=== PATIENT | female | born 1925 | race Caucasian/White ===

== ENCOUNTER 2016-06-22 07:38 | Observation (INO) | payer OTHER, BC ==
[~2016-06-22] VITALS: Ht 154.9 cm; Wt 68.9 kg
[~2016-06-22 07:38] MED LIST: ATARAX,VISTARIL25 MG PO; BYSTOLIC5 MG PO; CIPRO250 MG PO; CRESTOR5 MG PO; LIDOCAINE700 MG TD; LISINOPRIL2.5 MG PO; LISINOPRIL20 MG PO; LOPRESSOR25 MG PO; LOPRESSOR50 MG PO; PREDNISONE10 M1 PO; SENNA-TIME S T1 EACH PO; SODIUM CHLORIDE1 G1 PO; VESICARE10 MG PO
[2016-06-22 08:29] LABS: HEMATOCRIT 32.6 % (36.0-46.0); MCH 32.7 PG (29.0-34.0); MCHC 33.4 G/DL (30.0-36.0); MCV 97.9 FL (83-99); MEAN PLAT.VOLUME 11.3 uM^3 (9.5-12.4); PLATELET COUNT 175 K/uL (156-360); RBC DIS.WIDTH-CV 13.6 % (11.8-14.6); RBC DIS.WIDTH-SD 46.7 % (39-53); RED BLOOD COUNT 3.33 M/uL (3.80-5.20); WHITE BLOOD COUNT 8.7 K/uL (4.1-10.2)
[2016-06-22 08:42] LABS: CHLORIDE 105 mEq/L (99-109); POTASSIUM 4.3 mEq/L (3.7-5.4); SODIUM 138 mEq/L (136-147)
[2016-06-22 08:44] LABS: GLUCOSE 101 mg/dL (70-99)
[2016-06-22 08:46] LABS: ANION GAP 12 MEQ/L (2-14)
[2016-06-22 08:48] LABS: GFR ESTIMATE (CALCULATED) 41 mL/min/
[2016-06-22 08:49] LABS: UREA NITROGEN (BUN) 25 mg/dL (9-23)
[2016-06-22 08:56] LABS: TROP-I INTERPRETATION NEGATIVE; TROPONIN-I 0.06 ng/mL (0.0-0.30)
[2016-06-22 09:17] LABS: ADD MIUA? YES; BILIRUBIN NEGATIVE; BLOOD SMALL; COLOR YELLOW ((YELLOW)); GLUCOSE (STRIP) NEGATIVE; KETONES NEGATIVE; LEUKOCYTES LARGE; NITRITE POSITIVE; PROTEIN (STRIP) 30; UROBILINOGEN 0.2 MG/DL (0.2-1.0)
[2016-06-22 09:38] LABS: BACTERIA 3+ /HPF; EPITHELIAL CELLS 1+ /HPF; MUCUS NONE SEEN /LPF; RED BLOOD CELLS 0-5 /HPF (0-5); UCUL ADDED? YES; WHITE BLOOD CELLS TNTC /HPF (0-5)
[2016-06-22 10:59] LABS: TROP-I INTERPRETATION NEGATIVE; TROPONIN-I 0.06 ng/mL (0.0-0.30)
[2016-06-22] MEDS ORDERED: CLEOCIN300 MG PO (11:08)
[2016-06-22] MEDS ORDERED: FOLIC ACID1 MG PO (11:09)
[2016-06-22] MEDS ORDERED: METHOTREXATE2.5 MG PO (11:12)
[2016-06-22] MEDS ORDERED: PREDNISOLONE AC15 ML BOTH EYES (11:12)
[2016-06-22] MEDS ORDERED: MYRBETRIQ50 MG PO (11:13)
[2016-06-22] MEDS ORDERED: AMLODIPINE BES2.5 MG PO (11:14)
[2016-06-22] MEDS ORDERED: KENALOG,ARISTOC80 G1 TP (11:15)
[2016-06-22] MEDS ORDERED: POLYMYXIN B-TMP10 ML LEFT EYE (11:18)
[2016-06-22] MEDS ORDERED: EYLEA IV (11:22)
[2016-06-22] MEDS ORDERED: SUPER CALCIUM600 MG PO (11:24)
[2016-06-22] MEDS ORDERED: VITAMIN D31000 UNIT PO (11:25)
[2016-06-22 15:36] VITALS: BP 136/75
[2016-06-22 15:37] VITALS: BP 145/69; BP 169/76
[2016-06-22 17:32] LABS: TROP-I INTERPRETATION NEGATIVE
[2016-06-22 20:00] VITALS: BP 148/67
[2016-06-22 23:45] LABS: TROP-I INTERPRETATION NEGATIVE
[2016-06-23 00:31] VITALS: BP 172/81
[2016-06-23 05:51] VITALS: BP 158/74
[2016-06-23 08:00] VITALS: BP 167/70
[2016-06-23 11:51] VITALS: BP 139/64
[2016-06-23 20:00] VITALS: BP 145/70
[2016-06-24 00:05] VITALS: BP 148/64
[2016-06-24 08:00] VITALS: BP 151/72
== END 2016-06-24 12:03 ==
LOC: EME → EDBD 07:38 → EME 07:38 → 5WEST 10:38 → EDOF 10:38 → 5WEST 15:09
PROVIDERS: Emergency Medicine; Internal Medicine; Physician Assistant Medical
DX: R55 Syncope and collapse (principal); I65.21 Occlusion and stenosis of right carotid artery; N39.0 Urinary tract infection, site not specified; M79.604 Pain in right leg; I11.9 Hypertensive heart disease without heart failure; E78.5 Hyperlipidemia, unspecified; I34.8 Other nonrheumatic mitral valve disorders; I34.0 Nonrheumatic mitral (valve) insufficiency; I36.1 Nonrheumatic tricuspid (valve) insufficiency; I27.2 Other secondary pulmonary hypertension; I35.1 Nonrheumatic aortic (valve) insufficiency; R26.2 Difficulty in walking, not elsewhere classified; D64.9 Anemia, unspecified; Z82.49 Family history of ischemic heart disease and other diseases of the circulatory system; Z88.2 Allergy status to sulfonamides; Z88.8 Allergy status to other drugs, medicaments and biological substances
CPT/HCPCS: 70450; 71010; 73560; 73590; 80048; 81003; 84484; 85027; 87086; 93005; 93306; 93880; 93971; 99281; 99285; G0378; G8978 GP CJ; G8980 GP CI; J0696; J1644; J7030; J7050; J8610

== ENCOUNTER 2016-06-24 11:10 | Inpatient (IN) | payer OTHER, BC ==
[~2016-06-24] VITALS: Ht 154.9 cm; Wt 71.1 kg
[~2016-06-24 11:10] MED LIST changes: +AMLODIPINE BES2.5 MG PO; +CLEOCIN300 MG PO; +EYLEA IV; +FOLIC ACID1 MG PO; +KENALOG,ARISTOC80 G1 TP; +METHOTREXATE2.5 MG PO; +MYRBETRIQ50 MG PO; +POLYMYXIN B-TMP10 ML LEFT EYE; +PREDNISOLONE AC15 ML BOTH EYES; +SUPER CALCIUM600 MG PO; +VITAMIN D31000 UNIT PO
[2016-06-24 12:15] VITALS: BP 145/63
[2016-06-24 15:00] VITALS: BP 165/72
[2016-06-25 00:17] VITALS: BP 134/61
[2016-06-25 04:56] LABS: HEMATOCRIT 29.5 % (36.0-46.0); MCH 32.6 PG (29.0-34.0); MCHC 33.2 G/DL (30.0-36.0); MEAN PLAT.VOLUME 11.2 uM^3 (9.5-12.4); PLATELET COUNT 157 K/uL (156-360); RBC DIS.WIDTH-CV 13.7 % (11.8-14.6); RBC DIS.WIDTH-SD 46.1 % (39-53); RED BLOOD COUNT 3.01 M/uL (3.80-5.20); WHITE BLOOD COUNT 11.1 K/uL (4.1-10.2)
[2016-06-25 05:05] LABS: CHLORIDE 104 mEq/L (99-109); POTASSIUM 4.3 mEq/L (3.7-5.4)
[2016-06-25 05:07] LABS: GLUCOSE 131 mg/dL (70-99)
[2016-06-25 05:09] LABS: ANION GAP 7 MEQ/L (2-14); TOTAL BILIRUBIN 0.4 mg/dL (0.0-1.0)
[2016-06-25 05:11] LABS: ALKALINE PHOSPHATASE 120 IU/L (3-129); GFR ESTIMATE (CALCULATED) 38 mL/min/
[2016-06-25 05:12] LABS: UREA NITROGEN (BUN) 27 mg/dL (9-23)
[2016-06-25 05:14] LABS: SODIUM 131 mEq/L (136-147)
[2016-06-25 05:41] VITALS: BP 125/78
[2016-06-25 16:45] VITALS: BP 160/67
[2016-06-26 05:33] VITALS: BP 141/80
[2016-06-26 16:45] VITALS: BP 132/74
[2016-06-27 05:33] VITALS: BP 141/66
[2016-06-27 15:28] VITALS: BP 135/80
[2016-06-28 04:46] LABS: BASE EXCESS -3.8 mEq/L (-3 to +3); BICARBONATE 23.7 mEq/L (22-26); CARBOXY HGB 1.9 % (0-5); COMMENTS - BLOOD GASES C+; METHEMOGLOBIN 1.7 % (0-1.5); O2 FLOW 8 L/MIN; PCO2 54 mm Hg (35-45); PO2 71 mm Hg (80-100); SITE RR; pH 7.25 (7.35-7.45)
[2016-06-28 04:47] LABS: DEVICE NEBULIZER; TOTAL RESP RATE 32 resp/min
[2016-06-28 05:14] LABS: HEMATOCRIT 31.8 % (36.0-46.0); MCH 33.2 PG (29.0-34.0); MCHC 33.3 G/DL (30.0-36.0); MCV 99.7 FL (83-99); RBC DIS.WIDTH-CV 13.8 % (11.8-14.6); RED BLOOD COUNT 3.19 M/uL (3.80-5.20); WHITE BLOOD COUNT 12.3 K/uL (4.1-10.2)
[2016-06-28 05:15] VITALS: BP 157/78
[2016-06-28 05:23] LABS: TROP-I INTERPRETATION NEGATIVE; TROPONIN-I 0.06 ng/mL (0.0-0.30)
[2016-06-28 05:30] VITALS: BP 118/53
[2016-06-28 05:50] LABS: PROTHROMBIN TIME 9.8 (9.2-11.2)
[2016-06-28 06:00] VITALS: BP 97/46
[2016-06-28 06:29] LABS: MEAN PLAT.VOLUME 11.5 uM^3 (9.5-12.4); PLATELET COUNT 279 K/uL (156-360)
[2016-06-28] MEDS ORDERED: TRAMADOL HCL50 MG PO (07:40)
[2016-06-28] MEDS ORDERED: NEURONTIN100 MG PO (07:42)
== END 2016-06-28 04:55 | DRG 555 ==
LOC: 3WEST 11:10
PROVIDERS: Internal Medicine; Physical Medicine & Rehabilitation Pain Medicine; Psychiatry & Neurology Neurology
PROC: F07M0ZZ Range of Motion and Joint Mobility Treatment of Musculoskeletal System - Whole Body (ICD-10-PCS; principal; 2016-06-24)
DX: R26.2 Difficulty in walking, not elsewhere classified (principal); M62.81 Muscle weakness (generalized); J96.01 Acute respiratory failure with hypoxia; N39.0 Urinary tract infection, site not specified; B58.00 Toxoplasma oculopathy, unspecified; J98.01 Acute bronchospasm; Z91.81 History of falling; R06.00 Dyspnea, unspecified; R06.2 Wheezing; I65.21 Occlusion and stenosis of right carotid artery; I70.203 Unspecified atherosclerosis of native arteries of extremities, bilateral legs; I11.9 Hypertensive heart disease without heart failure; I49.1 Atrial premature depolarization; I49.3 Ventricular premature depolarization; I45.10 Unspecified right bundle-branch block; E78.5 Hyperlipidemia, unspecified; D64.9 Anemia, unspecified; I25.10 Atherosclerotic heart disease of native coronary artery without angina pectoris; M19.90 Unspecified osteoarthritis, unspecified site; R33.9 Retention of urine, unspecified; N31.8 Other neuromuscular dysfunction of bladder; M85.80 Other specified disorders of bone density and structure, unspecified site; H91.93 Unspecified hearing loss, bilateral
CPT/HCPCS: 36600; 71010; 71101; 73630; 74176; 80053; 82306; 82607; 82746; 82803; 84443; 84484; 85027; 85610; 85730; 94640; 94640 76; 97110 GO; 97530 GP; 99202; J1644

== ENCOUNTER 2016-06-28 04:59 | Inpatient (IN) | payer OTHER, BC ==
[2016-06-28] VITALS (14 sets, daily range): BP systolic 107–157; BP diastolic 46–84
[~2016-06-28] VITALS: Ht 154.9 cm; Wt 70.1 kg
[2016-06-28 07:15] LABS: D-DIMER ELISA 3.52 mg/L FEU (< 0.57)
[2016-06-28 07:18] LABS: METH RESISTANT S AUREUS PCR NEGATIVE (NEGATIVE); PROBE CHECK PASS; SPECIMEN PROCESSING CONTROL PASS
[2016-06-28] MEDS ORDERED: TRAMADOL HCL50 MG PO (07:40)
[2016-06-28] MEDS ORDERED: NEURONTIN100 MG PO (07:42)
[2016-06-28 10:45] LABS: ANION GAP 11 MEQ/L (2-14); CHLORIDE 96 MEQ/L (99-109); MAGNESIUM 2.2 mg/dl (1.3-2.7); SAMPLE HEMOLYSIS CHECK 0; SAMPLE ICTERIC CHECK 0; SAMPLE LIPEMIA CHECK 0; SODIUM 129 MEQ/L (136-147)
[2016-06-28 10:50] LABS: ADD MIUA? YES; BILIRUBIN NEGATIVE; BLOOD NEGATIVE; COLOR STRAW ((YELLOW)); GLUCOSE (STRIP) NEGATIVE; KETONES NEGATIVE; LEUKOCYTES SMALL; NITRITE NEGATIVE; PROTEIN (STRIP) NEGATIVE; SPECIFIC GRAVITY 1.005 (1.000-1.030); UROBILINOGEN 0.2 MG/DL (0.2-1.0)
[2016-06-28 10:50] LABS: GFR ESTIMATE (CALCULATED) 41 mL/min/; GLUCOSE 223 mg/dL (70-99); UREA NITROGEN (BUN) 30 mg/dL (9-23)
[2016-06-28 10:51] LABS: POTASSIUM 5.2 MEQ/L (3.7-5.4)
[2016-06-28 11:00] LABS: BACTERIA RARE /HPF; EPITHELIAL CELLS NONE SEEN /HPF; MUCUS NONE SEEN /LPF; RED BLOOD CELLS 20-30 /HPF (0-5); UCUL ADDED? NO; WHITE BLOOD CELLS 0-5 /HPF (0-5)
[2016-06-28 11:15] LABS: UR CREATININE CONCENTRATION 18.2 MG/DL
[2016-06-28 12:09] LABS: TROP-I INTERPRETATION NEGATIVE
[2016-06-28 12:25] LABS: CREATINE KINASE 74 IU/L (1-294); TOTAL CK 74 IU/L (1-294)
[2016-06-28 13:02] LABS: CK-MB 1.9 ng/mL (0.0-4.9)
[2016-06-28 18:48] LABS: CREATINE KINASE 77 IU/L (1-294); TOTAL CK 77 IU/L (1-294)
[2016-06-28 18:53] LABS: TROP-I INTERPRETATION NEGATIVE; TROPONIN-I 0.11 ng/mL (0.0-0.30)
[2016-06-28 19:25] LABS: CK-MB 2.7 ng/mL (0.0-4.9)
[2016-06-28 21:18] LABS: TROP-I INTERPRETATION NEGATIVE; TROPONIN-I 0.07 ng/mL (0.0-0.30)
[2016-06-29] VITALS (7 sets, daily range): BP systolic 129–174; BP diastolic 50–86
[2016-06-29 00:54] LABS: CREATINE KINASE 72 IU/L (1-294); TOTAL CK 72 IU/L (1-294)
[2016-06-29 00:58] LABS: TROP-I INTERPRETATION NEGATIVE; TROPONIN-I 0.09 ng/mL (0.0-0.30)
[2016-06-29 01:01] LABS: CK-MB 2.3 ng/mL (0.0-4.9)
[2016-06-29 06:42] LABS: EOSINOPHIL (%) 0 % (0-5); HEMATOCRIT 28.4 % (36.0-46.0); IMMATURE GRANULOCYTE (%) 0.2 % (0.0-0.7); MCH 33.8 PG (29.0-34.0); MCHC 34.9 G/DL (30.0-36.0); MCV 96.9 FL (83-99); MONOCYTE (%) 6.1 % (3-12); MONOCYTE COUNT 0.6 K/uL (0-0.8); NEUTROPHIL (%) 83.3 % (45-76); NEUTROPHIL COUNT 7.7 K/uL (1.8-6.4); RBC DIS.WIDTH-CV 13.7 % (11.8-14.6); RBC DIS.WIDTH-SD 47.6 % (39-53); RED BLOOD COUNT 2.93 M/uL (3.80-5.20); WHITE BLOOD COUNT 9.3 K/uL (4.1-10.2)
[2016-06-29 07:04] LABS: TROP-I INTERPRETATION NEGATIVE
[2016-06-29 07:55] LABS: CK-MB 1.6 ng/mL (0.0-4.9)
[2016-06-29 07:59] LABS: PLAT.SUFFICIENCY ADEQUATE
[2016-06-29 08:02] LABS: PLATELET COUNT 193 K/uL (156-360)
[2016-06-29 08:23] LABS: ANION GAP 8 MEQ/L (2-14); CHLORIDE 96 MEQ/L (99-109); CREATINE KINASE 68 IU/L (1-294); GFR ESTIMATE (CALCULATED) 41 mL/min/; GLUCOSE 151 mg/dL (70-99); SAMPLE HEMOLYSIS CHECK 0; SAMPLE ICTERIC CHECK 0; SAMPLE LIPEMIA CHECK 0; SODIUM 133 MEQ/L (136-147); TOTAL CK 68 IU/L (1-294); UREA NITROGEN (BUN) 33 mg/dL (9-23)
[2016-06-29 08:24] LABS: POTASSIUM 3.9 MEQ/L (3.7-5.4)
[2016-06-30 01:13] VITALS: BP 146/75
[2016-06-30 06:24] LABS: EOSINOPHIL (%) 0.1 % (0-5); IMMATURE GRANULOCYTE (%) 0.3 % (0.0-0.7); LYMPHOCYTE COUNT 1.6 K/uL (1.0-2.8); MCH 32.4 PG (29.0-34.0); MCHC 33.6 G/DL (30.0-36.0); MCV 96.6 FL (83-99); MEAN PLAT.VOLUME 10.6 uM^3 (9.5-12.4); MONOCYTE (%) 10.1 % (3-12); MONOCYTE COUNT 1.2 K/uL (0-0.8); NEUTROPHIL (%) 75.6 % (45-76); NEUTROPHIL COUNT 8.7 K/uL (1.8-6.4); PLATELET COUNT 225 K/uL (156-360); RBC DIS.WIDTH-CV 13.9 % (11.8-14.6); RBC DIS.WIDTH-SD 48.5 % (39-53); WHITE BLOOD COUNT 11.5 K/uL (4.1-10.2)
[2016-06-30 06:47] LABS: ANION GAP 10 MEQ/L (2-14); CHLORIDE 97 MEQ/L (99-109); GFR ESTIMATE (CALCULATED) 38 mL/min/; POTASSIUM 3.5 MEQ/L (3.7-5.4); SAMPLE HEMOLYSIS CHECK 0; SAMPLE ICTERIC CHECK 0; SAMPLE LIPEMIA CHECK 0; SODIUM 135 MEQ/L (136-147); UREA NITROGEN (BUN) 41 mg/dL (9-23)
[2016-06-30 06:49] LABS: GLUCOSE 99 mg/dL (70-99)
[2016-06-30 07:55] VITALS: BP 127/73
[2016-06-30 15:57] VITALS: BP 167/72
[2016-06-30 23:25] VITALS: BP 152/71
[2016-07-01 06:19] LABS: EOSINOPHIL (%) 0.3 % (0-5); HEMATOCRIT 29.4 % (36.0-46.0); IMMATURE GRANULOCYTE (%) 0.3 % (0.0-0.7); LYMPHOCYTE COUNT 2.6 K/uL (1.0-2.8); MCH 32.6 PG (29.0-34.0); MCV 98.7 FL (83-99); MEAN PLAT.VOLUME 11.1 uM^3 (9.5-12.4); MONOCYTE COUNT 1.4 K/uL (0-0.8); NEUTROPHIL (%) 70.4 % (45-76); NEUTROPHIL COUNT 9.5 K/uL (1.8-6.4); PLATELET COUNT 266 K/uL (156-360); RBC DIS.WIDTH-CV 14.2 % (11.8-14.6); RBC DIS.WIDTH-SD 50.6 % (39-53); RED BLOOD COUNT 2.98 M/uL (3.80-5.20); WHITE BLOOD COUNT 13.5 K/uL (4.1-10.2)
[2016-07-01 06:43] LABS: ANION GAP 11 MEQ/L (2-14); CHLORIDE 99 MEQ/L (99-109); GFR ESTIMATE (CALCULATED) 38 mL/min/; GLUCOSE 88 mg/dL (70-99); POTASSIUM 3.9 MEQ/L (3.7-5.4); SAMPLE HEMOLYSIS CHECK 0; SAMPLE ICTERIC CHECK 0; SAMPLE LIPEMIA CHECK 0; SODIUM 138 MEQ/L (136-147); UREA NITROGEN (BUN) 47 mg/dL (9-23)
[2016-07-01 08:03] VITALS: BP 157/65
[2016-07-01 16:12] VITALS: BP 126/76
[2016-07-02] VITALS: BP 128/59
[2016-07-02 04:00] VITALS: BP 122/78
[2016-07-02 06:17] LABS: EOSINOPHIL COUNT 0.1 K/uL (0-0.3); HEMATOCRIT 29.1 % (36.0-46.0); IMMATURE GRANULOCYTE (%) 0.3 % (0.0-0.7); LYMPHOCYTE COUNT 2.7 K/uL (1.0-2.8); MCH 32.8 PG (29.0-34.0); MCHC 33.3 G/DL (30.0-36.0); MCV 98.3 FL (83-99); MONOCYTE (%) 6.5 % (3-12); MONOCYTE COUNT 0.7 K/uL (0-0.8); NEUTROPHIL (%) 67.1 % (45-76); NEUTROPHIL COUNT 7.1 K/uL (1.8-6.4); PLATELET COUNT 259 K/uL (156-360); RBC DIS.WIDTH-CV 13.8 % (11.8-14.6); RBC DIS.WIDTH-SD 49.7 % (39-53); RED BLOOD COUNT 2.96 M/uL (3.80-5.20); WHITE BLOOD COUNT 10.6 K/uL (4.1-10.2)
[2016-07-02 06:40] LABS: ANION GAP 8 MEQ/L (2-14); CHLORIDE 99 MEQ/L (99-109); GFR ESTIMATE (CALCULATED) 38 mL/min/; GLUCOSE 93 mg/dL (70-99); POTASSIUM 3.8 MEQ/L (3.7-5.4); SAMPLE HEMOLYSIS CHECK 0; SAMPLE ICTERIC CHECK 0; SAMPLE LIPEMIA CHECK 0; SODIUM 136 MEQ/L (136-147); UREA NITROGEN (BUN) 46 mg/dL (9-23)
[2016-07-02 08:10] VITALS: BP 137/71
[2016-07-02 15:34] VITALS: BP 126/60
[2016-07-02 20:20] VITALS: BP 102/57
[2016-07-03] VITALS: BP 119/53
[2016-07-03 06:48] LABS: EOSINOPHIL (%) 5.8 % (0-5); EOSINOPHIL COUNT 0.6 K/uL (0-0.3); HEMATOCRIT 31.5 % (36.0-46.0); IMMATURE GRANULOCYTE (%) 0.4 % (0.0-0.7); LYMPHOCYTE COUNT 2.9 K/uL (1.0-2.8); MCH 32.8 PG (29.0-34.0); MCHC 33.3 G/DL (30.0-36.0); MCV 98.4 FL (83-99); MEAN PLAT.VOLUME 10.8 uM^3 (9.5-12.4); MONOCYTE (%) 5.1 % (3-12); MONOCYTE COUNT 0.5 K/uL (0-0.8); NEUTROPHIL (%) 61.1 % (45-76); NEUTROPHIL COUNT 6.5 K/uL (1.8-6.4); PLATELET COUNT 280 K/uL (156-360); RBC DIS.WIDTH-CV 13.8 % (11.8-14.6); RBC DIS.WIDTH-SD 49.3 % (39-53); WHITE BLOOD COUNT 10.7 K/uL (4.1-10.2)
[2016-07-03 07:18] LABS: ANION GAP 8 MEQ/L (2-14); CHLORIDE 100 MEQ/L (99-109); GFR ESTIMATE (CALCULATED) 41 mL/min/; GLUCOSE 86 mg/dL (70-99); POTASSIUM 3.9 MEQ/L (3.7-5.4); SAMPLE HEMOLYSIS CHECK 0; SAMPLE ICTERIC CHECK 0; SAMPLE LIPEMIA CHECK 0; SODIUM 136 MEQ/L (136-147); UREA NITROGEN (BUN) 46 mg/dL (9-23)
[2016-07-03 08:10] VITALS: BP 147/76
[2016-07-03] MEDS ORDERED: LOPRESSOR25 MG PO (12:47)
[2016-07-03] MEDS ORDERED: FAMOTIDINE20 MG PO (12:49)
[2016-07-03] MEDS ORDERED: BENZONATATE100 MG PO (12:49)
[2016-07-03] MEDS ORDERED: FUROSEMIDE40 MG PO (12:50)
[2016-07-03] MEDS ORDERED: HEPARIN SO5000 UNITS SC (15:15)
== END 2016-07-03 13:40 | DRG 189 ==
LOC: 4WEST 04:59 → 4EAST 05:08 → 4SOUTH 05:08 → 4WEST 05:08 → 4EAST 06-29 04:57 → 4SOUTH 06-29 23:21
PROVIDERS: Hospitalist; Internal Medicine; Internal Medicine Nephrology; Nurse Practitioner Family; Surgery
DX: J96.01 Acute respiratory failure with hypoxia (principal); I50.33 Acute on chronic diastolic (congestive) heart failure; B58.01 Toxoplasma chorioretinitis; M35.1 Other overlap syndromes; J44.9 Chronic obstructive pulmonary disease, unspecified; I27.2 Other secondary pulmonary hypertension; I13.0 Hypertensive heart and chronic kidney disease with heart failure and stage 1 through stage 4 chronic kidney disease, or unspecified chronic kidney disease; M15.8 Other polyosteoarthritis; J98.01 Acute bronchospasm; J98.11 Atelectasis; K21.9 Gastro-esophageal reflux disease without esophagitis; N18.3 Chronic kidney disease, stage 3 (moderate); I49.3 Ventricular premature depolarization; R26.2 Difficulty in walking, not elsewhere classified; I49.1 Atrial premature depolarization; I45.10 Unspecified right bundle-branch block; E78.5 Hyperlipidemia, unspecified; I25.10 Atherosclerotic heart disease of native coronary artery without angina pectoris; E87.6 Hypokalemia; D63.1 Anemia in chronic kidney disease; R55 Syncope and collapse; N39.0 Urinary tract infection, site not specified
CPT/HCPCS: 71275; 80048; 80048 91; 81003; 82550; 82550 91; 82553; 82570; 83735; 83880; 84100; 84156; 84300; 84484; 85025; 85027; 85379; 87641; 93005; 94002; 94640 76; 94760; 94799; 97530 GP; 99202; J1644; J1940; J2920; J2930; J7512; J8610; S0028

== ENCOUNTER 2016-07-03 12:07 | Inpatient (IN) | payer OTHER, BC ==
[~2016-07-03] VITALS: Ht 154.9 cm; Wt 68.5 kg
[~2016-07-03 12:07] MED LIST changes: +NEURONTIN100 MG PO; +TRAMADOL HCL50 MG PO
[2016-07-03] MEDS ORDERED: LOPRESSOR25 MG PO (12:47)
[2016-07-03] MEDS ORDERED: FAMOTIDINE20 MG PO (12:49)
[2016-07-03] MEDS ORDERED: BENZONATATE100 MG PO (12:49)
[2016-07-03] MEDS ORDERED: FUROSEMIDE40 MG PO (12:50)
[2016-07-03 13:00] VITALS: BP 144/65
[2016-07-03] MEDS ORDERED: HEPARIN SO5000 UNITS SC (15:15)
[2016-07-03 23:32] VITALS: BP 139/89
[2016-07-04 05:31] VITALS: BP 106/50
[2016-07-04 06:08] LABS: HEMATOCRIT 30.8 % (36.0-46.0); MCH 31.4 PG (29.0-34.0); MCHC 32.5 G/DL (30.0-36.0); MCV 96.9 FL (83-99); MEAN PLAT.VOLUME 10.4 uM^3 (9.5-12.4); PLATELET COUNT 303 K/uL (156-360); RBC DIS.WIDTH-CV 13.7 % (11.8-14.6); RBC DIS.WIDTH-SD 48.6 % (39-53); RED BLOOD COUNT 3.18 M/uL (3.80-5.20); WHITE BLOOD COUNT 10.3 K/uL (4.1-10.2)
[2016-07-04 06:24] LABS: ALKALINE PHOSPHATASE 118 IU/L (3-129); ANION GAP 9 MEQ/L (2-14); CHLORIDE 100 MEQ/L (99-109); GFR ESTIMATE (CALCULATED) 38 mL/min/; GLUCOSE 89 mg/dL (70-99); POTASSIUM 4.3 MEQ/L (3.7-5.4); SAMPLE HEMOLYSIS CHECK 0; SAMPLE ICTERIC CHECK 0; SAMPLE LIPEMIA CHECK 0; SODIUM 135 MEQ/L (136-147); TOTAL BILIRUBIN 0.3 MG/DL (0.0-1.0); UREA NITROGEN (BUN) 44 mg/dL (9-23)
[2016-07-04 16:30] VITALS: BP 149/64
[2016-07-05 05:12] VITALS: BP 130/66
[2016-07-05 07:36] VITALS: BP 135/60
[2016-07-05 15:00] VITALS: BP 137/63
[2016-07-06 05:44] VITALS: BP 136/88
[2016-07-06 06:49] VITALS: BP 142/83
[2016-07-06 14:53] VITALS: BP 136/79
[2016-07-07 05:46] VITALS: BP 126/55
[2016-07-07 15:32] VITALS: BP 156/60
[2016-07-08 04:35] VITALS: BP 139/68
[2016-07-08 15:00] VITALS: BP 139/67
[2016-07-09 04:39] LABS: HEMATOCRIT 28.5 % (36.0-46.0); MCH 32.4 PG (29.0-34.0); MCV 98.3 FL (83-99); PLATELET COUNT 238 K/uL (156-360); RBC DIS.WIDTH-CV 13.6 % (11.8-14.6); RBC DIS.WIDTH-SD 45.3 % (39-53)
[2016-07-09 04:40] LABS: WHITE BLOOD COUNT 13.9 K/uL (4.1-10.2)
[2016-07-09 04:47] LABS: CHLORIDE 99 mEq/L (99-109); POTASSIUM 4.2 mEq/L (3.7-5.4); SODIUM 132 mEq/L (136-147)
[2016-07-09 04:49] LABS: GLUCOSE 127 mg/dL (70-99)
[2016-07-09 04:51] LABS: ANION GAP 7 MEQ/L (2-14); TOTAL BILIRUBIN 0.4 mg/dL (0.0-1.0)
[2016-07-09 04:53] LABS: ALKALINE PHOSPHATASE 148 IU/L (3-129); GFR ESTIMATE (CALCULATED) 38 mL/min/
[2016-07-09 04:54] LABS: UREA NITROGEN (BUN) 35 mg/dL (9-23)
[2016-07-09 05:41] VITALS: BP 138/65
[2016-07-09 17:45] VITALS: BP 128/73
[2016-07-10 05:32] VITALS: BP 119/54
[2016-07-10 11:03] LABS: ADD MIUA? YES; BILIRUBIN NEGATIVE; BLOOD SMALL; COLOR YELLOW ((YELLOW)); GLUCOSE (STRIP) 50; KETONES NEGATIVE; LEUKOCYTES LARGE; NITRITE NEGATIVE; PROTEIN (STRIP) 30; SPECIFIC GRAVITY 1.012 (1.000-1.030); UROBILINOGEN 0.2 MG/DL (0.2-1.0)
[2016-07-10 11:53] LABS: BACTERIA 2+ /HPF; EPITHELIAL CELLS 1+ /HPF; MUCUS NONE SEEN /LPF; WHITE BLOOD CELLS TNTC /HPF (0-5); WHITE BLOOD CELLS CLUMP MANY /HPF (0-5)
[2016-07-10 16:25] VITALS: BP 118/59
[2016-07-10] MEDS ORDERED: LOVENOX30 MG/0.3 SC (20:31)
[2016-07-10] MEDS ORDERED: DUONEB 2.5-0.5 M3 ML AEROSOL (20:31)
[2016-07-10] MEDS ORDERED: LIDOCAINE700 MG TD (20:32)
[2016-07-10] MEDS ORDERED: SENNA PLUS TAB1 EACH PO (20:32)
[2016-07-10] MEDS ORDERED: ADVAIR HFA120 INHALA IH (20:32)
[2016-07-11 05:00] VITALS: BP 149/58
[2016-07-11 05:28] LABS: HEMATOCRIT 26.7 % (36.0-46.0); MCH 32.1 PG (29.0-34.0); MCHC 33.3 G/DL (30.0-36.0); MCV 96.4 FL (83-99); MEAN PLAT.VOLUME 10.4 uM^3 (9.5-12.4); PLATELET COUNT 236 K/uL (156-360); RBC DIS.WIDTH-SD 48.5 % (39-53); RED BLOOD COUNT 2.77 M/uL (3.80-5.20); WHITE BLOOD COUNT 11.8 K/uL (4.1-10.2)
[2016-07-11 05:51] LABS: ANION GAP 9 MEQ/L (2-14); CHLORIDE 94 MEQ/L (99-109); GFR ESTIMATE (CALCULATED) 38 mL/min/; GLUCOSE 109 mg/dL (70-99); POTASSIUM 4.2 MEQ/L (3.7-5.4); SAMPLE HEMOLYSIS CHECK 0; SAMPLE ICTERIC CHECK 0; SAMPLE LIPEMIA CHECK 0; SODIUM 127 MEQ/L (136-147); UREA NITROGEN (BUN) 31 mg/dL (9-23)
[2016-07-11 14:18] LABS: UR CREATININE CONCENTRATION 50.9 MG/DL
[2016-07-11 15:59] VITALS: BP 164/77
[2016-07-12 04:35] LABS: EOSINOPHIL (%) 2.4 % (0-5); EOSINOPHIL COUNT 0.2 K/uL (0-0.3); HEMATOCRIT 25.1 % (36.0-46.0); IMMATURE GRANULOCYTE (%) 0.2 % (0.0-0.7); IMMATURE GRANULOCYTE COUNT 0.2 K/uL; LYMPHOCYTE COUNT 1.5 K/uL (1.0-2.8); MCH 32.5 PG (29.0-34.0); MCHC 33.1 G/DL (30.0-36.0); MCV 98.4 FL (83-99); MONOCYTE COUNT 0.8 K/uL (0-0.8); NEUTROPHIL (%) 73.7 % (45-76); NEUTROPHIL COUNT 6.9 K/uL (1.8-6.4); PLATELET COUNT 210 K/uL (156-360); RBC DIS.WIDTH-CV 13.6 % (11.8-14.6); RED BLOOD COUNT 2.55 M/uL (3.80-5.20); WHITE BLOOD COUNT 9.4 K/uL (4.1-10.2)
[2016-07-12 04:52] LABS: CHLORIDE 98 mEq/L (99-109); POTASSIUM 4.6 mEq/L (3.7-5.4); SODIUM 131 mEq/L (136-147)
[2016-07-12 04:54] LABS: GLUCOSE 124 mg/dL (70-99)
[2016-07-12 04:56] LABS: ANION GAP 6 MEQ/L (2-14); TOTAL BILIRUBIN 0.3 mg/dL (0.0-1.0)
[2016-07-12 04:58] LABS: ALKALINE PHOSPHATASE 153 IU/L (3-129); GFR ESTIMATE (CALCULATED) 45 mL/min/
[2016-07-12 04:59] LABS: UREA NITROGEN (BUN) 30 mg/dL (9-23)
[2016-07-12 05:36] VITALS: BP 113/61
[2016-07-13 05:38] LABS: HEMATOCRIT 24.8 % (36.0-46.0); MCH 32.7 PG (29.0-34.0); MCHC 33.1 G/DL (30.0-36.0); MCV 98.8 FL (83-99); MEAN PLAT.VOLUME 10.5 uM^3 (9.5-12.4); PLATELET COUNT 201 K/uL (156-360); RBC DIS.WIDTH-CV 13.8 % (11.8-14.6); RBC DIS.WIDTH-SD 49.6 % (39-53); RED BLOOD COUNT 2.51 M/uL (3.80-5.20); WHITE BLOOD COUNT 7.1 K/uL (4.1-10.2)
[2016-07-13 05:52] VITALS: BP 113/53
[2016-07-13 06:25] LABS: ANION GAP 7 MEQ/L (2-14); CHLORIDE 101 MEQ/L (99-109); GFR ESTIMATE (CALCULATED) 41 mL/min/; GLUCOSE 96 mg/dL (70-99); POTASSIUM 4.3 MEQ/L (3.7-5.4); SAMPLE HEMOLYSIS CHECK 0; SAMPLE ICTERIC CHECK 0; SAMPLE LIPEMIA CHECK 0; SODIUM 134 MEQ/L (136-147); UREA NITROGEN (BUN) 26 mg/dL (9-23)
[2016-07-13 12:15] LABS: ABSOLUTE RETICULOCYTE CT. 0.1 M/uL (0.02-0.08); IMM.RETIC FRACTION 18.7 % (3-19); RETIC HGB EQUIVALENT 35.9 (28-36); RETICULOCYTE COUNT 1.9 % (0.5-1.8)
[2016-07-13 13:08] LABS: IRON 31 MCG/DL (35-150)
[2016-07-13 13:26] LABS: FERRITIN 112 NG/ML (10-291)
[2016-07-13 15:38] VITALS: BP 165/73
[2016-07-14 05:44] VITALS: BP 114/73
[2016-07-14 14:53] LABS: HEMATOCRIT 28.4 % (36.0-46.0); MCH 32.7 PG (29.0-34.0); MCV 102.2 FL (83-99); MEAN PLAT.VOLUME 10.3 uM^3 (9.5-12.4); PLATELET COUNT 235 K/uL (156-360); RBC DIS.WIDTH-CV 13.9 % (11.8-14.6); RBC DIS.WIDTH-SD 51.3 % (39-53); RED BLOOD COUNT 2.78 M/uL (3.80-5.20); WHITE BLOOD COUNT 8.1 K/uL (4.1-10.2)
[2016-07-14 15:16] LABS: ANION GAP 8 MEQ/L (2-14); CHLORIDE 103 MEQ/L (99-109); GFR ESTIMATE (CALCULATED) 41 mL/min/; GLUCOSE 134 mg/dL (70-99); POTASSIUM 4.4 MEQ/L (3.7-5.4); SAMPLE HEMOLYSIS CHECK 0; SAMPLE ICTERIC CHECK 0; SAMPLE LIPEMIA CHECK 0; SODIUM 138 MEQ/L (136-147); UREA NITROGEN (BUN) 32 mg/dL (9-23)
[2016-07-14 15:58] VITALS: BP 181/77
[2016-07-14 16:49] VITALS: BP 140/64
[2016-07-15 05:57] VITALS: BP 148/66
[2016-07-15 12:46] LABS: HEMATOCRIT 27.8 % (36.0-46.0); MCH 32.6 PG (29.0-34.0); MCV 101.8 FL (83-99); MEAN PLAT.VOLUME 10.3 uM^3 (9.5-12.4); PLATELET COUNT 229 K/uL (156-360); RBC DIS.WIDTH-CV 13.8 % (11.8-14.6); RBC DIS.WIDTH-SD 50.4 % (39-53); RED BLOOD COUNT 2.73 M/uL (3.80-5.20); WHITE BLOOD COUNT 8.1 K/uL (4.1-10.2)
[2016-07-15 13:08] LABS: ANION GAP 7 MEQ/L (2-14); CHLORIDE 102 MEQ/L (99-109); GFR ESTIMATE (CALCULATED) 45 mL/min/; GLUCOSE 150 mg/dL (70-99); POTASSIUM 4.3 MEQ/L (3.7-5.4); SAMPLE HEMOLYSIS CHECK 0; SAMPLE ICTERIC CHECK 0; SAMPLE LIPEMIA CHECK 0; SODIUM 138 MEQ/L (136-147); UREA NITROGEN (BUN) 32 mg/dL (9-23)
[2016-07-15 15:48] VITALS: BP 127/58
[2016-07-16 04:59] VITALS: BP 137/78
[2016-07-16 09:57] LABS: HEMATOCRIT 29.1 % (36.0-46.0); MCHC 30.9 G/DL (30.0-36.0); MCV 103.6 FL (83-99); MEAN PLAT.VOLUME 10.1 uM^3 (9.5-12.4); PLATELET COUNT 231 K/uL (156-360); RBC DIS.WIDTH-CV 13.8 % (11.8-14.6); RBC DIS.WIDTH-SD 52.1 % (39-53); RED BLOOD COUNT 2.81 M/uL (3.80-5.20); WHITE BLOOD COUNT 7.8 K/uL (4.1-10.2)
[2016-07-16 10:26] LABS: ANION GAP 10 MEQ/L (2-14); CHLORIDE 104 MEQ/L (99-109); GFR ESTIMATE (CALCULATED) 41 mL/min/; GLUCOSE 135 mg/dL (70-99); SAMPLE HEMOLYSIS CHECK 0; SAMPLE ICTERIC CHECK 0; SAMPLE LIPEMIA CHECK 0; SODIUM 140 MEQ/L (136-147); UREA NITROGEN (BUN) 31 mg/dL (9-23)
[2016-07-16] MEDS ORDERED: FUROSEMIDE20 MG PO (12:45)
[2016-07-16] MEDS ORDERED: SODIUM CHLORIDE1 G1 PO (12:45)
[2016-07-18 11:56] LABS: POC NON-PRINT COM 1 ND
== END 2016-07-16 15:11 | DRG 91 ==
LOC: 3WEST 12:07
PROVIDERS: Internal Medicine; Internal Medicine Nephrology; Physical Medicine & Rehabilitation Pain Medicine
PROC: F07M0ZZ Range of Motion and Joint Mobility Treatment of Musculoskeletal System - Whole Body (ICD-10-PCS; principal; 2016-07-03)
DX: R26.9 Unspecified abnormalities of gait and mobility (principal); J96.01 Acute respiratory failure with hypoxia; J90 Pleural effusion, not elsewhere classified; E22.2 Syndrome of inappropriate secretion of antidiuretic hormone; E87.1 Hypo-osmolality and hyponatremia; I27.2 Other secondary pulmonary hypertension; I25.10 Atherosclerotic heart disease of native coronary artery without angina pectoris; R53.1 Weakness; E78.5 Hyperlipidemia, unspecified; B95.62 Methicillin resistant Staphylococcus aureus infection as the cause of diseases classified elsewhere; H91.20 Sudden idiopathic hearing loss, unspecified ear; M19.90 Unspecified osteoarthritis, unspecified site; J98.01 Acute bronchospasm; I50.9 Heart failure, unspecified; J44.9 Chronic obstructive pulmonary disease, unspecified; I49.1 Atrial premature depolarization; M75.40 Impingement syndrome of unspecified shoulder; N18.3 Chronic kidney disease, stage 3 (moderate); D64.9 Anemia, unspecified; E83.51 Hypocalcemia; M25.851 Other specified joint disorders, right hip; N39.0 Urinary tract infection, site not specified; I12.9 Hypertensive chronic kidney disease with stage 1 through stage 4 chronic kidney disease, or unspecified chronic kidney disease
CPT/HCPCS: 71010; 72100; 73502; 76770; 80048; 80053; 81003; 82272; 82533 91; 82570; 82607; 82728; 82746; 83540; 83735; 83935; 84100; 84156; 84300; 85025; 85027; 85045; 87077; 87086; 87147; 87186; 94640; 94640 76; 97110 GO; 97530 GP; 99202; J1650; J8610

== ENCOUNTER 2016-08-22 11:17 | Inpatient (IN) | payer OTHER, BC ==
[~2016-08-22] VITALS: Ht 154.9 cm; Wt 67.9 kg
[~2016-08-22 11:17] MED LIST changes: +ADVAIR HFA120 INHALA IH; +BENZONATATE100 MG PO; +DUONEB 2.5-0.5 M3 ML AEROSOL; +FAMOTIDINE20 MG PO; +FUROSEMIDE20 MG PO; +FUROSEMIDE40 MG PO; +HEPARIN SO5000 UNITS SC; +LOVENOX30 MG/0.3 SC; +SENNA PLUS TAB1 EACH PO
[2016-08-22 12:07] LABS: EOSINOPHIL (%) 0.2 % (0-5); HEMATOCRIT 31.1 % (36.0-46.0); IMMATURE GRANULOCYTE (%) 0.3 % (0.0-0.7); IMMATURE GRANULOCYTE COUNT 0.1 K/uL; INSTRUMENT ABS NEUTROPHIL CT 13.7 K/uL; LYMPHOCYTE COUNT 1.1 K/uL (1.0-2.8); MCH 31.2 PG (29.0-34.0); MCHC 32.5 G/DL (30.0-36.0); MEAN PLAT.VOLUME 10.9 uM^3 (9.5-12.4); MONOCYTE (%) 4.2 % (3-12); MONOCYTE COUNT 0.7 K/uL (0-0.8); NEUTROPHIL (%) 88.4 % (45-76); NEUTROPHIL COUNT 13.7 K/uL (1.8-6.4); PLATELET COUNT 271 K/uL (156-360); RBC DIS.WIDTH-CV 13.7 % (11.8-14.6); RBC DIS.WIDTH-SD 48.5 % (39-53); RED BLOOD COUNT 3.24 M/uL (3.80-5.20); WHITE BLOOD COUNT 15.5 K/uL (4.1-10.2)
[2016-08-22 12:15] LABS: INTER. NORMALIZED RATIO 1.1; PROTHROMBIN TIME 10.8 (9.2-11.2); PTT 23.8 (25-32)
[2016-08-22 12:19] LABS: CHLORIDE 106 mEq/L (99-109); POTASSIUM 4.2 mEq/L (3.7-5.4); SODIUM 139 mEq/L (136-147)
[2016-08-22 12:20] LABS: GLUCOSE 141 mg/dL (70-99)
[2016-08-22 12:22] LABS: ANION GAP 12 MEQ/L (2-14)
[2016-08-22 12:24] LABS: GFR ESTIMATE (CALCULATED) 45 mL/min/
[2016-08-22 12:25] LABS: UREA NITROGEN (BUN) 31 mg/dL (9-23)
[2016-08-22 12:29] LABS: TROP-I INTERPRETATION NEGATIVE; TROPONIN-I 0.29 ng/mL (0.0-0.30)
[2016-08-22] MEDS ORDERED: LIDOCAINE700 MG TD (14:27)
[2016-08-22] MEDS ORDERED: ADVAIR HFA120 INHALA IH (14:27)
[2016-08-22] MEDS ORDERED: FAMOTIDINE20 MG PO (14:29)
[2016-08-22] MEDS ORDERED: PREDNISONE10 MG PO (14:31)
[2016-08-22] MEDS ORDERED: PROAIR HFA8.5 GM IH (14:35)
[2016-08-22] MEDS ORDERED: EYLEA IO (14:35)
[2016-08-22] MEDS ORDERED: KENALOG,ARISTOC15 G2 TP (14:36)
[2016-08-22] MEDS ORDERED: POLYTRIM EYE DR10 ML LEFT EYE (14:41)
[2016-08-22 14:46] LABS: MAGNESIUM 1.8 mg/dL (1.3-2.7)
[2016-08-22 15:06] LABS: ADD MIUA? YES; BILIRUBIN NEGATIVE; BLOOD NEGATIVE; COLOR YELLOW ((YELLOW)); GLUCOSE (STRIP) >=500; KETONES NEGATIVE; LEUKOCYTES LARGE; NITRITE NEGATIVE; PROTEIN (STRIP) 30; SPECIFIC GRAVITY 1.017 (1.000-1.030); UROBILINOGEN 0.2 MG/DL (0.2-1.0)
[2016-08-22 15:33] VITALS: BP 138/64
[2016-08-22 15:55] LABS: RED BLOOD CELLS 0-5 /HPF (0-5)
[2016-08-22 15:56] LABS: BACTERIA 3+ /HPF; EPITHELIAL CELLS 1+ /HPF; MUCUS NONE SEEN /LPF; UCUL ADDED? YES; WHITE BLOOD CELLS TNTC /HPF (0-5)
[2016-08-22 15:57] LABS: CASTS NONE SEEN /LPF; CRYSTALS NONE SEEN
[2016-08-22 18:44] LABS: TROP-I INTERPRETATION NEGATIVE; TROPONIN-I 0.27 ng/mL (0.0-0.30)
[2016-08-22 19:30] VITALS: BP 133/61
[2016-08-22 23:58] VITALS: BP 140/60
[2016-08-23 01:00] LABS: TROP-I INTERPRETATION NEGATIVE; TROPONIN-I 0.28 ng/mL (0.0-0.30)
[2016-08-23 03:52] VITALS: BP 114/66
[2016-08-23 06:04] LABS: ANION GAP 10 MEQ/L (2-14); CHLORIDE 103 MEQ/L (99-109); GFR ESTIMATE (CALCULATED) 38 mL/min/; GLUCOSE 156 mg/dL (70-99); HDL CHOLESTEROL 61 MG/DL (Desirable>=50); LDL CHOLESTEROL 112 mg/dL (Desirable<100); MAGNESIUM 1.9 mg/dl (1.3-2.7); NON-HDL CHOLESTEROL 127 mg/dL (Desirable<160); SAMPLE HEMOLYSIS CHECK 0; SAMPLE ICTERIC CHECK 0; SAMPLE LIPEMIA CHECK 0; SODIUM 138 MEQ/L (136-147); TOTAL CHOLESTEROL 188 mg/dL (Desirable<200); TRIGLYCERIDES 77 MG/DL (Normal: <150); UREA NITROGEN (BUN) 34 mg/dL (9-23)
[2016-08-23 07:00] LABS: Estimated Average Glucose 126 mg/dL (70-123)
[2016-08-23 08:45] VITALS: BP 138/78
[2016-08-23 12:00] VITALS: BP 140/69
[2016-08-23 13:27] VITALS: BP 109/65
[2016-08-23 14:28] LABS: METH RESISTANT S AUREUS PCR NEGATIVE (NEGATIVE)
[2016-08-23 14:30] LABS: PROBE CHECK PASS; SPECIMEN PROCESSING CONTROL PASS
[2016-08-23 16:29] VITALS: BP 131/68
[2016-08-23 20:15] VITALS: BP 144/76
[2016-08-24] VITALS (7 sets, daily range): BP systolic 119–140; BP diastolic 64–90
[2016-08-24 07:53] LABS: HEMATOCRIT 32.8 % (36.0-46.0); MCH 31.9 PG (29.0-34.0); MCHC 32.9 G/DL (30.0-36.0); MCV 96.8 FL (83-99); MEAN PLAT.VOLUME 10.7 uM^3 (9.5-12.4); PLATELET COUNT 321 K/uL (156-360); RBC DIS.WIDTH-SD 49.5 % (39-53); RED BLOOD COUNT 3.39 M/uL (3.80-5.20); WHITE BLOOD COUNT 18.3 K/uL (4.1-10.2)
[2016-08-24 08:48] LABS: ANION GAP 10 MEQ/L (2-14); CHLORIDE 105 MEQ/L (99-109); GFR ESTIMATE (CALCULATED) 41 mL/min/; GLUCOSE 92 mg/dL (70-99); POTASSIUM 4.3 MEQ/L (3.7-5.4); SAMPLE HEMOLYSIS CHECK 0; SAMPLE ICTERIC CHECK 0; SAMPLE LIPEMIA CHECK 0; SODIUM 138 MEQ/L (136-147); UREA NITROGEN (BUN) 42 mg/dL (9-23)
[2016-08-25 02:52] VITALS: BP 137/64
[2016-08-25 06:45] LABS: HEMATOCRIT 29.8 % (36.0-46.0); MCH 31.3 PG (29.0-34.0); MCHC 32.2 G/DL (30.0-36.0); MCV 97.1 FL (83-99); MEAN PLAT.VOLUME 11.5 uM^3 (9.5-12.4); PLATELET COUNT 235 K/uL (156-360); RBC DIS.WIDTH-CV 14.1 % (11.8-14.6); RBC DIS.WIDTH-SD 49.6 % (39-53); RED BLOOD COUNT 3.07 M/uL (3.80-5.20)
[2016-08-25 06:46] LABS: WHITE BLOOD COUNT 12.3 K/uL (4.1-10.2)
[2016-08-25 07:07] LABS: ANION GAP 8 MEQ/L (2-14); CHLORIDE 106 MEQ/L (99-109); GFR ESTIMATE (CALCULATED) 38 mL/min/; GLUCOSE 84 mg/dL (70-99); POTASSIUM 4.2 MEQ/L (3.7-5.4); SAMPLE HEMOLYSIS CHECK 0; SAMPLE ICTERIC CHECK 0; SAMPLE LIPEMIA CHECK 0; SODIUM 140 MEQ/L (136-147); UREA NITROGEN (BUN) 44 mg/dL (9-23)
[2016-08-25 08:11] VITALS: BP 140/65
[2016-08-25 11:22] VITALS: BP 125/67
[2016-08-25 15:50] VITALS: BP 154/76
[2016-08-25 19:30] VITALS: BP 148/67
[2016-08-25 23:23] VITALS: BP 133/63
[2016-08-26 03:52] VITALS: BP 120/56
[2016-08-26 07:38] VITALS: BP 142/63
[2016-08-26 09:18] LABS: HEMATOCRIT 33.7 % (36.0-46.0); MCH 31.2 PG (29.0-34.0); MCHC 31.8 G/DL (30.0-36.0); MCV 98.3 FL (83-99); MEAN PLAT.VOLUME 10.8 uM^3 (9.5-12.4); PLATELET COUNT 238 K/uL (156-360); RBC DIS.WIDTH-CV 13.8 % (11.8-14.6); RBC DIS.WIDTH-SD 50.2 % (39-53); RED BLOOD COUNT 3.43 M/uL (3.80-5.20); WHITE BLOOD COUNT 9.4 K/uL (4.1-10.2)
[2016-08-26 09:42] LABS: ANION GAP 7 MEQ/L (2-14); CHLORIDE 103 MEQ/L (99-109); GFR ESTIMATE (CALCULATED) 45 mL/min/; POTASSIUM 3.9 MEQ/L (3.7-5.4); SAMPLE HEMOLYSIS CHECK 0; SAMPLE ICTERIC CHECK 0; SAMPLE LIPEMIA CHECK 0; SODIUM 137 MEQ/L (136-147); UREA NITROGEN (BUN) 39 mg/dL (9-23)
[2016-08-26 09:43] LABS: GLUCOSE 148 mg/dL (70-99)
[2016-08-26] MEDS ORDERED: CARDIZEM60 MG PO (11:16)
[2016-08-26] MEDS ORDERED: CEFDINIR300 MG PO (11:16)
[2016-08-26] MEDS ORDERED: ASPIRIN EC325 MG PO (11:16)
[2016-08-26] MEDS ORDERED: FUROSEMIDE20 MG PO (11:16)
[2016-08-26 11:40] VITALS: BP 137/63
== END 2016-08-26 14:30 | disposition home health service (06) | DRG 291 ==
LOC: EME 11:17 → EDOF 14:16 → 5WEST 15:26 → 4EAST 19:46 → 5WEST 19:46 → 4EAST 08-23 13:13
PROVIDERS: Emergency Medicine; Hospitalist; Nurse Practitioner Family; Physician Assistant
DX: I13.0 Hypertensive heart and chronic kidney disease with heart failure and stage 1 through stage 4 chronic kidney disease, or unspecified chronic kidney disease (principal); I50.33 Acute on chronic diastolic (congestive) heart failure; I48.91 Unspecified atrial fibrillation; N39.0 Urinary tract infection, site not specified; N18.3 Chronic kidney disease, stage 3 (moderate); J44.9 Chronic obstructive pulmonary disease, unspecified; I27.2 Other secondary pulmonary hypertension; B96.20 Unspecified Escherichia coli [E. coli] as the cause of diseases classified elsewhere; Z86.14 Personal history of Methicillin resistant Staphylococcus aureus infection; H91.90 Unspecified hearing loss, unspecified ear; I49.3 Ventricular premature depolarization; I49.1 Atrial premature depolarization; D64.9 Anemia, unspecified; R26.2 Difficulty in walking, not elsewhere classified; I65.21 Occlusion and stenosis of right carotid artery; I08.3 Combined rheumatic disorders of mitral, aortic and tricuspid valves; E78.5 Hyperlipidemia, unspecified; Z86.73 Personal history of transient ischemic attack (TIA), and cerebral infarction without residual deficits; I25.10 Atherosclerotic heart disease of native coronary artery without angina pectoris; I45.10 Unspecified right bundle-branch block; I44.4 Left anterior fascicular block; E86.0 Dehydration; M19.90 Unspecified osteoarthritis, unspecified site; N31.9 Neuromuscular dysfunction of bladder, unspecified; R29.6 Repeated falls; H35.30 Unspecified macular degeneration; G89.29 Other chronic pain
CPT/HCPCS: 71010; 80048; 80061; 81003; 83036; 83735; 83880; 84443; 84484; 85025; 85027; 85610; 85730; 87077; 87086; 87186; 87641; 93005; 94640; 94640 76; 99281; 99285; J0696; J1650; J1940; J2930; J7050; J7512